=== PATIENT | male | born 1985 | race Two or more races ===

== ENCOUNTER 2025-02-02 14:40 | Emergency (ER) | payer OTHER ==
[~2025-02-02] VITALS: Ht 177.8 cm; Wt 95.5 kg
[2025-02-02 15:02] LABS: BASOPHILS 0.9 % (0-2); EOSINOPHILS 0.5 % (0-6); HEMATOCRIT 42.2 % (35.0-50.0); HEMOGLOBIN 14.5 g/dL (12.0-18.0); MCH 32.4 (27-36); MCHC 34.3 g/dl (30-36); MCV 94.5 fl (81-99); MONOCYTES 9.4 % (0-12); NEUTROPHILS 64.2 % (39-80); PLATELET COUNT 273 K/uL (140-440); RBC 4.46 M/ul (4.3-5.7); RDW 13.5 (10.5-15.0)
[2025-02-02 15:12] LABS: ALBUMIN/GLOBULIN RATIO 1.29 (1.1-2.4); ALCOHOL, MEDICAL <3 ng/dL (<3); ALKALINE PHOSPHATASE 68 U/L (46-116); ALT (SGPT) 26 U/L (14-59); ANION GAP 14.1 (7-21); AST (SGOT) 28 U/L (15-37); BILIRUBIN, TOTAL 0.8 mg/dL (0.2-1.0); BUN/CREATININE RATIO 7.75 (6.0-28.6); CALCIUM 8.6 mg/dL (8.5-10.1); CARBON DIOXIDE 24 mmol/L (21-32); CHLORIDE 102 mmol/L (98-107); CREATINE KINASE 903 U/L (39-308); CREATININE, SERUM 1.29 mg/dL (0.70-1.30); GLOMERULAR FILTRATION RATE,EST 72 mL/min (>60); POTASSIUM 3.1 mmol/L (3.5-5.1); PROTEIN, TOTAL 7.1 g/dL (6.4-8.2); UREA NITROGEN 10 mg/dL (7-18)
[2025-02-02] MEDS ORDERED: SODIUM CHLORIDE 0.9% 1,000 ML IV PRN ×2 (15:30→16:45)
[2025-02-02] MEDS ORDERED: DIPHTH,PERTUSS(ACELL),TET VAC 0.5 ML SYRINGE IM ONE (15:30)
[2025-02-02 15:31] LABS: ABO AB; RH POSITIVE
[2025-02-02 15:32] LABS: ANTIBODY SCREEN NEGATIVE
[2025-02-02 16:07] LABS: BILIRUBIN, URINE NEGATIVE (negative); BLOOD/HGB, URINE NEGATIVE (Negative); KETONE, URINE NEGATIVE (Negative); LEUK ESTERASE, URINE NEGATIVE (negative); NITRITE, URINE NEGATIVE (negative); PH, URINE 5.5 (5-7)
[2025-02-02 16:23] LABS: AMPHETAMINES, URINE NEGATIVE (NEGATIVE); BARBITURATES, URINE NEGATIVE (NEGATIVE); BENZODIAZEPINE, URINE NEGATIVE (NEGATIVE); BUPRENORPHINE, URINE NEGATIVE (NEGATIVE); CANNABINOID, URINE NEGATIVE (NEGATIVE); COCAINE, URINE NEGATIVE (NEGATIVE); ECSTASY, URINE NEGATIVE (NEGATIVE); FENTANYL, URINE NEGATIVE (NEGATIVE); METHADONE, URINE NEGATIVE (NEGATIVE); OPIATES, URINE NEGATIVE (NEGATIVE); OXYCODONE, URINE NEGATIVE (NEGATIVE); PHENCYCLIDINE, URINE NEGATIVE (NEGATIVE)
[2025-02-02 16:41] LABS: CORONAVIRUS COVID-19 AG NEGATIVE (NEGATIVE); INFLUENZA A AG NEGATIVE (NEGATIVE); INFLUENZA B AG NEGATIVE (NEGATIVE)
[2025-02-02] MEDS ORDERED: POTASSIUM CHLORIDE 20 MEQ/15 ML CUP PO ONE (16:45)
[2025-02-02] MEDS ORDERED: OLANZapine 10 MG TABDIS PO ONE (18:45)
[2025-02-03] MEDS ORDERED: OLANZapine 10 MG TABDIS PO ONE (11:30)
[2025-02-04 06:19] VITALS: BP 131/83
== END 2025-02-04 06:21 ==
LOC: ED 14:40
PROVIDERS: Emergency Medicine
DX: F20.81 Schizophreniform disorder (principal); T21.24XA Burn of second degree of lower back, initial encounter; T24.211A Burn of second degree of right thigh, initial encounter; S60.511A Abrasion of right hand, initial encounter; V57.5XXA Driver of pick-up truck or van injured in collision with fixed or stationary object in traffic accident, initial encounter; Z23 Encounter for immunization
CPT/HCPCS: 36415; 70450; 71046; 71260; 72125; 73130; 74177; 80053; 80307; 81003; 82550; 83605; 85025; 86850; 86900; 86901; 90471; 90715; 99285-25; A9270; G0480; J7030; Q3014